=== PATIENT | female | born 1985 | race Caucasian/White ===

== ENCOUNTER 2017-07-16 13:31 | Observation (INO) | payer OTHER ==
[~2017-07-16] VITALS: Ht 154.9 cm; Wt 78.0 kg
[2017-07-16 13:49] VITALS: BP 107/65
[2017-07-16 14:12] LABS: ABSOLUTE BASOPHILS 0.1 thou/uL (0.0-0.2); ABSOLUTE EOSINOPHILS 0.1 thou/uL (0.0-0.7); ABSOLUTE LYMPHOCYTES 1.8 thou/uL (0.8-5.3); ABSOLUTE MONOCYTES 0.9 thou/uL (0.0-1.2); ABSOLUTE NEUTROPHILS 12.5 thou/uL (1.6-8.1); BASOPHILS 0.5 %; EOSINOPHILS 0.4 %; HEMATOCRIT 39.8 % (37.0-47.0); HEMOGLOBIN 13.2 gm/dL (12.0-15.0); LYMPHOCYTES 11.6 %; MCH 30.8 pg (26.0-34.0); MCHC 33.1 g/dL (28.0-37.0); MONOCYTES 5.8 %; MPV 7.6 fl. (7.2-11.1); NUCLEATED RBCS 0 /100WBC; PLATELET COUNT* 295 thou/uL (150-400); POLYS 81.7 %; RBC 4.28 mil/uL (4.20-5.00); RDW-CV 14.1 % (10.5-14.5); WBC 15.3 thou/uL (4.0-11.0)
[2017-07-16 14:23] LABS: CALCIUM 8.6 mg/dL (8.5-10.1); CREATININE 0.7 mg/dL (0.6-1.3)
[2017-07-16 14:27] LABS: ALBUMIN 3.7 g/dL (3.4-5.0); TOTAL BILIRUBIN 0.8 mg/dL (<0.1-1.0); TOTAL PROTEIN 7.3 g/dL (6.4-8.2)
[2017-07-16 15:41] LABS: URINE BILIRUBIN NEGATIVE (Negative); URINE BLOOD NEGATIVE (Negative); URINE CLARITY CLEAR; URINE COLOR YELLOW; URINE GLUCOSE-RANDOM NEGATIVE (Negative); URINE KETONES NEGATIVE (Negative); URINE LEUKOCYTES-REFLEX NEGATIVE (Negative); URINE NITRITE-REFLEX NEGATIVE (Negative); URINE PROTEIN NEGATIVE (Negative); URINE SPECIFIC GRAVITY <= 1.005 (1.005-1.030); URINE UROBILINOGEN 0.2 E.U./dl (0.2-1.0)
[2017-07-16 17:31] VITALS: BP 103/56
[2017-07-16 20:20] VITALS: BP 105/70
[2017-07-17 00:04] VITALS: BP 116/77
[2017-07-17 04:03] VITALS: BP 108/70
--- NOTE | 2017-07-17 06:42 | NUR ---
Arrived to floor at 2020 last evening. She had a lap appy. She has lap sites x 3 with dermabond, all approximated well. She was nauseated at first but she feels better now. She's up to the bathroom with stand by assist,voiding well. She had pain med this am. She slept well.
--- NOTE | 2017-07-17 07:00 | NUR ---
IV in left antecubital infiltrated and new IV started in right hand.
[2017-07-17 07:45] VITALS: BP 84/53
[2017-07-17 08:59] LABS: ABSOLUTE BASOPHILS 0.1 thou/uL (0.0-0.2); ABSOLUTE LYMPHOCYTES 2.1 thou/uL (0.8-5.3); ABSOLUTE MONOCYTES 0.6 thou/uL (0.0-1.2); ABSOLUTE NEUTROPHILS 10.8 thou/uL (1.6-8.1); BASOPHILS 0.4 %; EOSINOPHILS 0.2 %; HEMATOCRIT 32.2 % (37.0-47.0); LYMPHOCYTES 15.6 %; MCH 31.5 pg (26.0-34.0); MCHC 34.1 g/dL (28.0-37.0); MCV 92.3 fL (80.0-100.0); MONOCYTES 4.1 %; MPV 7.3 fl. (7.2-11.1); NUCLEATED RBCS 0 /100WBC; PLATELET COUNT* 229 thou/uL (150-400); POLYS 79.7 %; RBC 3.49 mil/uL (4.20-5.00); RDW-CV 13.6 % (10.5-14.5); WBC 13.6 thou/uL (4.0-11.0)
[2017-07-17 09:05] LABS: CALCIUM 7.5 mg/dL (8.5-10.1); CREATININE 0.5 mg/dL (0.6-1.3); POTASSIUM 3.4 mmol/L (3.5-5.1)
[2017-07-17] MEDS ORDERED: HYDROCODONE-AP1 EAC6 PO (09:59)
[2017-07-17 10:00] VITALS: BP 84/53
[2017-07-17] MEDS ORDERED: CIPRO500 MG PO (10:20)
[2017-07-17] MEDS ORDERED: FLAGYL500 MG PO (10:21)
[2017-07-17 10:23] VITALS: BP 84/53
--- NOTE | 2017-07-17 11:23 | OP ---
[address] [address] OPERATIVE REPORT Name: SHAWNA BEJARANO Room: [address]#: [id number] Admission: 07/16/17 Attend Phys: Isabelle Decker MD Discharge: Date of : 81 Report #: [id number] THIS REPORT FOR: //name// CC: Isabelle Helms MD DICTATED BY: Kishan Mcgregor DO DATE OF SERVICE: 07/16/2017 SURGERY PERFORMED: Laparoscopic appendectomy. PREOPERATIVE DIAGNOSIS: Acute appendicitis. POSTOPERATIVE DIAGNOSIS: Acute appendicitis with abscess. SURGEON: Isabelle Decker MD LAYAWAY CLERK: Kishan Mcgregor, PGY1; Piero Payne, PGY1. ANESTHESIA TYPE: General and local. ESTIMATED BLOOD LOSS: 20 mL. SPECIMENS REMOVED: Appendix. COMPLICATIONS: None. INDICATIONS: The patient presented to the Emergency Department with chief complaint of 1 day history of right lower quadrant pain, associated nausea, chills, positive McBurney's, positive Rovsing sign, leukocytosis 15, CT findings of acute appendicitis with micro perforation. Full discussion of procedure, alternatives, risks and possible complications to include but not limited to bleeding, infection, postoperative pain, scarring, hernia, conversion to open procedure, injury to bowel, bladder, other abdominal viscera; recurrent appendicitis from appendiceal stump, staple line failure, peritonitis, sepsis, need for further surgery, anesthesia risks, cardiopulmonary arrest and even . The patient voiced understanding of these risks, asked appropriate questions and agrees to proceed with surgery. Written consent was obtained. Preoperative antibiotics were given, 600 mg clindamycin. DESCRIPTION OF PROCEDURE: The patient was taken to the OR, transferred to the OR table in the supine position. General endotracheal intubation was administered by anesthesiologist. SCDs were applied, Bovie grounding pad placed on the patient's right proximal thigh. The patient was then [place] [address] OPERATIVE REPORT Name: SHAWNA BEJARANO Carmelita Room: [address] M..#: [id number] Admission: 07/16/17 Attend Phys: Isabelle Decker MD Discharge: Date of : 81 Report #: [id number] using standard sterile fashion. Timeout was then performed prior to incision. We began with the superior umbilical incision 10 mm, using open Harvey technique entered into the abdomen. Suprapubic and left lower quadrant 5 mm trocars were placed after pneumoperitoneum was achieved. Next, using laparoscopic Buhl the mesoappendix was grasped and the appendix was elevated. There was noted to be a small abscess formation in the right peritoneum next to the cecum. Using blunt dissection, the ligament of Treitz was grasped and small bowel was mobilized medially. Blunt dissection was further used to locate the TI, and Harmonic scalpel was used to dissect the mesoappendix to the appendiceal base. Next, an Endo-LEBRON 45 mm blue load was used to staple off the appendix. Staple line was evaluated and a second 45 mm blue load was used to amputate the appendix at the base. Next, suction irrigation was used to irrigate the area of abscess and any blood in the abdomen. Hemostasis was achieved and there was no bleeding from staple line or any other structures. A 10 mm Endocatch bag was used to extract the appendix through the umbilical port. We reinsufflated the abdomen and checked for any further bleeding, there was none. Suctioned out any remaining fluid. We examined the pelvis, there was no fluid in the pelvis. Gas was turned off and allowed to escape through the trocars. Trocars were removed using direct visualization. There was no bleeding of the trocar sites. All pneumoperitoneum was removed. Fascia was closed using 0 Vicryl and skin was closed using 4-0 Monocryl and Dermabond. The patient tolerated the procedure well, was extubated in the OR and transferred to PACU in stable condition. She will remain as inpatient observation overnight, potentially home tomorrow. <ELECTRONICALLY SIGNED> By: Isabelle Decker MD 07/17/17 1123 [id number] 2019Daloren Decker MD /nt
--- NOTE | 2017-07-17 11:57 | NUR ---
PATIENT LEFT UNIT AT 1140. ALERT AND ORIENTED X4. UP AD NATALY IN ROOM. IV DC'D. PAIN MANAGED WITH PO PAIN MEDICATION. DENIES NAUSEA. TOLERATING REGULAR DIET. INCISIONS ARE WELL APPROXIMATED. ALL PERSONAL ITEMS LEFT WITH PATIENT. DISCHARGE INSTRUCTIONS, PRESCRIPTIONS, AND NEW MEDICATION INFORMATION SENT WITH PATIENT. VSS ON ROOM AIR. HOURLY ROUNDS HAVE BEEN MAINTAINED THROUGHOUT SHIFT. LEFT WITH SIGNIFICANT OTHER VIA CAR.
[2017-07-17 12:00] VITALS: BP 84/53
--- NOTE | 2017-07-20 14:24 | S ---
[place] [address] SURGICAL PATH RPT PROCEDURE Name: ALEJANDRA BEJARANO [address] [id number] Admission: 07/16/17 Date of : 81 Discharge: 07/17/17 Report #: [id number] Path Case #: [id number] PATHOLOGY REPORT COLLECTION DATE: 07/16/2017 RECEIVED DATE: 07/17/2017 SUBMITTING PHYS: Dr. Isabelle Decker OTHER PHYS: Dr. Lorne Helms SPECIMEN(S) RECEIVED: A.Appendix * * * * * * * * * * * * FINAL DIAGNOSIS: Appendix: - Acute appendicitis, periappendicitis, and serositis. (MC:mgr; 07/20/2017) PATHOLOGIST: Julito Lopez M.D. REPORT ELECTRONICALLY SIGNED BY: Julito Lopez M.D. DATE/TIME: 07/20/2017 14:23 * * * * * * * * * * * * GROSS PATHOLOGY: Received in formalin labeled "Alejandra Tan appendix," is a tightly curled, U-shaped appendix measuring 4.9 cm in length and 0.9 cm in diameter with a moderate amount of attached mesoappendix. The serosal surface is smooth and pale boyce to dark brown with a small amount of fibrinopurulent exudate. Sectioning reveals a pinpoint to dilated lumen partially filled with dark brown, solid fecal material. The proximal margin and bisected distal tip are submitted in cassette A1, and additional financial sales representative tissue is submitted in cassette A2. (TSD; 07/17/2017) CLINICAL HISTORY: Acute appendicitis INITIAL CPT CODE(S): A; 68264 Professional services performed [place] [facility] [place] [address] Technical services performed by [facility] at [address] [place] [address], [address], [place] [address]. [place] [address] SURGICAL PATH RPT PROCEDURE Name: ALEJANDRA BEJARANO Room: [address] Yani Porras#: [id number] Admission: 07/16/17 Date of : 81 Discharge: 07/17/17 Report #: [id number] Path Case #: [id number] [facility] [address] [place] [address] PHONE: [phone] DIRECTOR: Roshan Norris M.D. * * * END OF REPORT * * *
== END 2017-07-17 11:40 | disposition home or self-care (01) ==
LOC: M.ERS 13:31 → M.ORTHSURG 17:05 → M.TBA-ER 17:05 → M.ORTHSURG 20:31
PROVIDERS: Physician Assistant; Surgery; ADMIT Surgery
DX: K35.2 Acute appendicitis with generalized peritonitis (principal); G43.909 Migraine, unspecified, not intractable, without status migrainosus; F17.210 Nicotine dependence, cigarettes, uncomplicated; D72.829 Elevated white blood cell count, unspecified; Z90.49 Acquired absence of other specified parts of digestive tract; Z91.040 Latex allergy status; Z88.8 Allergy status to other drugs, medicaments and biological substances

== ENCOUNTER 2017-07-21 18:34 | Emergency (ER) | payer OTHER ==
[~2017-07-21] VITALS: Ht 154.9 cm; Wt 71.7 kg
[~2017-07-21 18:34] MED LIST: CIPRO500 MG PO; FLAGYL500 MG PO; HYDROCODONE-AP1 EAC6 PO
[2017-07-21 19:30] VITALS: BP 130/80
== END 2017-07-21 19:30 | disposition home or self-care (01) ==
LOC: M.ERS 18:34
DX: G89.18 Other acute postprocedural pain (principal); F10.99 Alcohol use, unspecified with unspecified alcohol-induced disorder; Z98.890 Other specified postprocedural states; Z88.1 Allergy status to other antibiotic agents; Z91.040 Latex allergy status

== ENCOUNTER 2018-07-23 19:04 | Emergency (ER) | payer OTHER ==
[~2018-07-23] VITALS: Ht 157.5 cm; Wt 74.8 kg
[2018-07-23 19:55] LABS: ABSOLUTE BASOPHILS 0.1 thou/uL (0.0-0.2); ABSOLUTE EOSINOPHILS 0.2 thou/uL (0.0-0.7); ABSOLUTE LYMPHOCYTES 3.1 thou/uL (0.8-5.3); ABSOLUTE MONOCYTES 0.6 thou/uL (0.0-1.2); ABSOLUTE NEUTROPHILS 5.5 thou/uL (1.6-8.1); BASOPHILS 0.8 %; EOSINOPHILS 1.9 %; HEMATOCRIT 38.3 % (37.0-47.0); HEMOGLOBIN 13.1 gm/dL (12.0-15.0); LYMPHOCYTES 32.6 %; MCH 31.4 pg (26.0-34.0); MCHC 34.1 g/dL (28.0-37.0); MCV 92.2 fL (80.0-100.0); MONOCYTES 6.2 %; MPV 7.6 fl. (7.2-11.1); NUCLEATED RBCS 0 /100WBC; PLATELET COUNT* 286 thou/uL (150-400); POLYS 58.5 %; RBC 4.16 mil/uL (4.20-5.00); RDW-CV 13.4 % (10.5-14.5); WBC 9.4 thou/uL (4.0-11.0)
[2018-07-23 20:00] LABS: CALCIUM 8.6 mg/dL (8.5-10.1); CREATININE 0.7 mg/dL (0.6-1.3); POTASSIUM 3.6 mmol/L (3.5-5.1)
[2018-07-23] MEDS ORDERED: NORCO 5-325 TA1 EAC1 PO (21:29)
[2018-07-23] MEDS ORDERED: CLEOCIN HCL300 MG PO (21:29)
[2018-07-23 21:45] VITALS: BP 129/78
== END 2018-07-23 21:45 | disposition home or self-care (01) ==
LOC: M.ERS 19:04
PROVIDERS: Nurse Practitioner Family
DX: L05.01 Pilonidal cyst with abscess (principal); F17.200 Nicotine dependence, unspecified, uncomplicated; Z88.1 Allergy status to other antibiotic agents; Z91.040 Latex allergy status; Z90.49 Acquired absence of other specified parts of digestive tract; Z90.89 Acquired absence of other organs

== ENCOUNTER 2018-07-25 12:54 | Emergency (ER) | payer OTHER ==
[~2018-07-25] VITALS: Ht 157.5 cm; Wt 74.8 kg
[~2018-07-25 12:54] MED LIST changes: +CLEOCIN HCL300 MG PO; +NORCO 5-325 TA1 EAC1 PO
[2018-07-25] MEDS ORDERED: NORCO 7.5-3251 EACH PO (13:08)
[2018-07-25] MEDS ORDERED: BUTALB-APAP-CA1 EACH PO (13:09)
[2018-07-25] MEDS ORDERED: NEXIUM40 MG PO (13:10)
[2018-07-25] MEDS ORDERED: XANAX1 MG PO (13:10)
[2018-07-25 13:57] VITALS: BP 122/76
== END 2018-07-25 13:57 | disposition home or self-care (01) ==
LOC: M.ERS 12:54
DX: Z48.01 Encounter for change or removal of surgical wound dressing (principal); Z90.49 Acquired absence of other specified parts of digestive tract; F17.210 Nicotine dependence, cigarettes, uncomplicated; Z88.6 Allergy status to analgesic agent; Z91.040 Latex allergy status